=== PATIENT | female | born 2000 | race Hispanic/Latino ===

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

== ENCOUNTER 2022-02-24 17:52 | Emergency (ER) | payer MEDICAID ==
[~2022-02-24] VITALS: Ht 165.1 cm; Wt 77.1 kg
[2022-02-24 18:58] VITALS: BP 113/63
[2022-02-24] MEDS ORDERED: CYCL5TAB PO (19:18)
[2022-02-24] MEDS ORDERED: IBUP-2070 PO (19:18)
[2022-02-24 19:19] LABS: APPEARANCE,URINE Clear (CLEAR); BILIRUBIN,URINE Negative (NEGATIVE); COLOR,URINE Yellow (YELLOW); GLUCOSE, URINE (UA) Negative (NEGATIVE); KETONES,URINE Trace mg/dL (NEGATIVE); LEUKOCYTE ESTERASE ,URINE Negative (NEGATIVE); NITRATE,URINE Negative (NEGATIVE); OCCULT BLOOD,URINE Large (NEGATIVE); PROTEIN,URINE Negative (NEGATIVE)
[2022-02-24 19:24] LABS: HCG,QUALITATIVE URINE NEGATIVE (NEGATIVE)
[2022-02-24 19:29] LABS: BACTERIA,URINE Few /HPF (None Seen); WBC,URINE 0-1 /HPF (0-1)
[2022-02-24 19:30] LABS: MUCUS,URINE Rare LPF (None Seen); SQUAMOUS EPITHELIAL CELL,UR Few /HPF (0-2)
[2022-02-24] MEDS ORDERED: CYCLOBENZAPRINE HCL 10 MG TABLET PO ONE (19:30)
[2022-02-24] MEDS ORDERED: IBUPROFEN 600 MG TABLET PO ONE (19:30)
== END 2022-02-24 19:57 | disposition home or self-care (01) ==
LOC: EDH 17:52
DX: S39.012A Strain of muscle, fascia and tendon of lower back, initial encounter (principal); X58.XXXA Exposure to other specified factors, initial encounter; Y93.89 Activity, other specified; Y92.89 Other specified places as the place of occurrence of the external cause; Y99.8 Other external cause status
CPT/HCPCS: 81001; 81025

== ENCOUNTER 2024-03-31 08:03 | Emergency (ER) | payer SELFPAY ==
[~2024-03-31] VITALS: Ht 152.4 cm; Wt 86.2 kg
[~2024-03-31 08:03] MED LIST: CYCL5TAB PO; IBUP-2070 PO
[2024-03-31 08:41] LABS: MEAN CORPUSCULAR HEMOGLOBIN 24.2 pg (27.0-33.0); MEAN CORPUSCULAR HGB CONC 31.1 g/dL (32.0-36.0); MEAN CORPUSCULAR VOLUME 77.8 fL (80-100); PLATELET COUNT (AUTO) 273 K/uL (130-400); RED BLOOD CELL COUNT(AUTO) 4.63 MIL/uL (4.00-5.50); RED CELL DISTRIBUTION WIDTH 15.4 % (11.0-15.5); WHITE BLOOD COUNT (AUTO) 9.3 K/uL (4.8-10.8)
[2024-03-31 08:47] LABS: BASOPHILS # (AUTO) 0.02 K/uL (0.00-0.20); BASOPHILS % (AUTO) 0.2 % (0.0-5.0); EOSINOPHILS % (AUTO) 1.1 % (0.0-8.0); IMMATURE GRANULOCYTE ABSOLUTE 0.05 K/uL (0-1); LYMPHOCYTES # (AUTO) 1.3 K/uL (1.0-4.8); MONOCYTES # (AUTO) 0.8 K/uL (0.1-1.0); MONOCYTES % (AUTO) 8.3 % (3.0-13.0); NEUTROPHILS # (AUTO) 7.1 K/uL (1.8-7.7); NEUTROPHILS % (AUTO) 75.9 % (40.0-77.0)
[2024-03-31 08:54] LABS: CREATININE 0.6 mg/dL (0.5-1.0); POTASSIUM 3.3 mmol/L (3.5-5.1)
[2024-03-31 08:58] LABS: INFLUENZA TYPE A Negative For Type A (NEGATIVE); INFLUENZA TYPE B Negative For Type B (NEGATIVE)
[2024-03-31 09:04] LABS: COVID19 (SARS ANTIGEN RAPID) PRESUMPTIVE NEGATIVE (NEGATIVE)
[2024-03-31] MEDS: KCL 20 MEQ ERTAB PO ONE (09:09)
[2024-03-31] MEDS: 0.9% NACL 500ML IV.SOLN 500 ML IV ONE (09:13)
[2024-03-31] MEDS ORDERED: ACET-2123 PO (11:13)
[2024-03-31] MEDS ORDERED: AMOX-426 PO (11:13)
[2024-03-31] MEDS ORDERED: OXYM30SP27 NS (11:13)
[2024-03-31 11:55] VITALS: BP 114/64; PULSE 90; RESP 16; O2SAT 99
== END 2024-03-31 11:46 | disposition home or self-care (01) ==
LOC: EDH 08:03
DX: J06.9 Acute upper respiratory infection, unspecified (principal); B96.89 Other specified bacterial agents as the cause of diseases classified elsewhere; B97.89 Other viral agents as the cause of diseases classified elsewhere; Z20.822 Contact with and (suspected) exposure to COVID-19; Z79.899 Other long term (current) drug therapy
CPT/HCPCS: 99284; 96360; 71045; 87426; 80048; 85025; 87804 ×2; 81025; 36415; J7040